=== PATIENT | female | born 1985 | race American Indian/Alaskan Native ===

== ENCOUNTER 2025-01-04 08:44 | Emergency (ER) | payer SELFPAY ==
[2025-01-04 08:45] VITALS: BMI 29.2
[2025-01-04 09:11] VITALS: BP 151/89; PULSE 66; RESP 16; TEMP 36.5; O2SAT 99
--- NOTE | 2025-01-04 09:17 | EDNOTE_ITS ---
Upper Extremity Injury RME/HPI General Chief Complaint: Hand/Wrist Problems Stated Complaint: CUT TO LEFT THUMB TODAY Time Seen by Provider: 01/04/25 08:49 Arrival date/time: 01/04/25 08:44 39-year-old female with no significant medical problems presents to the emergency department today complains of laceration to the left thumb dorsal aspect unknown last tetanus. Patient reports accidentally cut her self with box stacker Limitations: no limitations Related Data Previous Rx's ?Medication ?Instructions ?Recorded ciprofloxacin HCl 0.3 % eye drops See Rx Instructions ophthalmic 11/02/22 (eye) .COMPLEX #10 mL cephalexin 500 mg capsule 500 mg PO BID 5 days #10 cap s 01/04/25 ibuprofen 600 mg tablet 600 mg PO Q6H #30 tabs 01/04 Allergies Allergy/AdvReac Type Severity Reaction Status Date / Time No Known Allergies Allergy Verified 01/04/25 08:47 Review of Systems Review of Systems Systems Reviewed: All systems reviewed, normal except as documented Constitutional Constitutional: Reports system reviewed and no additional complaints, except as documented, Denies fever(s) and Denies headache(s) Eyes Eyes: Reports system reviewed and no additional complaints, except as documented and Denies blurry vision ENT Ears, Nose, Mouth, and Throat: Reports system reviewed and no additional complaints, except as documented, Denies headache(s), Denies nasal congestion and Denies nasal discharge Cardiovascular Cardiovascular: Reports system reviewed and no additional complaints, except as documented, Denies chest pain and Denies dyspnea Respiratory Respiratory: Reports system reviewed and no additional complaints, except as documented, Denies chest congestion, Denies cough and Denies dyspnea Gastrointestinal Gastrointestinal: Reports system reviewed and no additional complaints, except as documented and Denies abdominal pain Integumentary/Breasts Skin/Breast: Reports system reviewed and no additional complaints, except as documented, Denies rash and Reports wounds (Laceration left thumb) Neurologic Neurologic: Reports system reviewed and no additional complaints, except as documented, Reports as per HPI and Denies headache(s) Past Medical History Social History SMOKING STATUS: Never smoker ED Exam General Limitations: Present no limitations General appearance: Present alert and in no apparent distress Head Head exam: Present atraumatic Eye Eye exam: Present normal appearance, PERRL and EOMI ENT ENT exam: Present normal exam, normal oropharynx and mucous membranes moist Neck Neck exam: Present normal inspection, full ROM and trachea midline Chest Chest inspection: Present normal inspection and symmetric chest wall rise Respiratory Respiratory exam: Present normal lung sounds bilaterally Cardiovascular Cardiovascular exam: Present regular rate, normal rhythm and normal heart sounds Abdominal Exam Abdominal exam: Present soft and normal bowel sounds Extremities Exam Extremities exam: Present normal inspection and full ROM Back Exam Back exam: Present normal inspection and full ROM Neurological Exam Neurological exam: Present alert, oriented X3 and CN II-XII intact Psychiatric Psychiatric exam: Present normal affect and normal mood Skin Skin exam: Present warm, dry and other (Laceration left thumb) Course Quality Measures none Orders Category Date Time Status Set Up Suture Tray STAT Care 01/04/25 09:18 Completed Splint / Immobilizer STAT Care 01/04/25 09:37 Completed Wound Care NOW Care 01/04/25 09:18 Completed Lidocaine 1% 20 ml [Xylocaine 1% 20 ML] Med 01/04/25 09:18 Discontinued 20 ml INFL X1 ONE TET,DIP/PERT AC (Adult)-Tdap [Boostrix Adult (Tdap) Med 01/04/25 09:18 Discontinued Vacc] 0.5 ml IMI .ONCE ONE Vital Signs Vital signs: Vital Signs Temperature 97.7 F 01/04/25 09:11 Pulse Rate 66 01/04/25 09:11 Respiratory Rate 16 01/04/25 09:11 Blood Pressure 151/89 H 01/04/25 09:11 Pulse Oximetry (%) 99 01/04/25 09:11 Oxygen Delivery Method Room Air 01/04/25 09:11 O2 saturation on 99% room air within the limits Procedures -ED Laceration Laceration 1: Site: hand Side (If applicable): left Size (cm): 3 Description: linear Depth: simple, single layer Local Anesthetic: lidocaine 1% Amount of anesthesia used (mL): 4 Pre-repair: wound explored, irrigated extensively and deep structures intact Skin layer closed with: nylon Splint Fabrication: Clinician Made Type: Finger Protector Reason for Splint: Optimal Positioning and Pain Management Site condition: Laceration(s) Circulation Distal to Splint: Yes Movement Distal to Splint: Yes Senation Distal to Splint: Yes Tolerance: Tolerates Well Extremity Injury MDM Narrative MDM Narrative:: 39-year-old female with no significant medical problems presents to the emergency department today complains of laceration to the left thumb dorsal aspect unknown last tetanus. Patient reports accidentally cut her self with box stacker On exam patient has 3 cm laceration left thumb Wound again copiously laceration repaired with 4 sutures wound is well- approximated patient has full range of motion finger splint applied Tdap updated Patient discharged home in no distress to follow-up with primary care doctor in the next 24 to 48 hours and for any worsening symptoms to return to the ER immediately Patient data External records reviewed:: [facility] previous records Clinical information provided by:: patient Social determinants that could affect healthcare access:: none Patient has the following chronic illnesses:: None How is presenting disease/condition affected by chronic disease/condition?: no chronic disease Evaluation data The following diagnostics were reviewed and interpreted by me:: other (specify) Lab and/or radiology exams considered but not ordered:: Consider not ordered Interpretation Summary: N/A Medications / Prescriptions Medications or Prescriptions considered but not ordered:: Given Medication administrations:: Medication Administration History Discontinued Medications Diphtheria/Tetanus/Acell Pertussis (Diphth,Pertuss(Acell),Tet Vac 0.5 Ml Syr- Adult) 0.5 ml IMi .ONCE ONE Stop: 01/04/25 09:19 Last Admin: 01/04/25 09:46 Dose: 0.5 ml Documented By: ANDREY Lidocaine HCl (Lidocaine Hcl 1% 20 Ml Vial) 20 ml INFL X1 ONE Stop: 01/04/25 09:19 Last Admin: 01/04/25 09:45 Dose: 20 ml Documented By: ANDREY Comments: Administered by provider Given Consultations Consultation(s) initiated? (list below): No Diagnosis Upper Extremity Injury Differential Diagnosis: other (Laceration, abrasion, avulsion) Most likely diagnosis given after review of the tests above:: Laceration Admission Indicated Admission indicated?: not indicated Admission Request Was there a request for admission?: No Disposition Plan Disposition Plan: Discharge Discharge Attestation Discharge Attestation: The patient and all family members were given an opportunity to ask questions and understood the discharge instructions. Discharge instructions specifically effects, indications for sooner follow up or return to the emergency department, and the expected course of current diagnosis. Patient condition: Stable Discharge Plan Plan Patient Disposition: HOME (Self Care) Disposition Comment: Stable Prescriptions/Referrals Prescriptions/Med Rec: New cephalexin 500 mg capsule 500 mg PO BID 5 Days Qty: 10 0RF ibuprofen 600 mg tablet 600 mg PO Q6H Qty: 30 0RF No Action ciprofloxacin HCl 0.3 % drops See Rx Instructions .ROUTE .COMPLEX Qty: 10 0RF Rx Instructions: put 1-2 drps in affected eye(s) every 2hr up to 8 times/day x2days; then 4 times/day x5days Problem List Clinical Impression: Laceration of left thumb Patient/Caregiver Discharge Instructions Education Materials: ED Scar Tips to Minimize Additional Instructions: Please follow up with your primary care doctor in the next 24-48hrs for any worsening symptoms return here immediately Please have sutures removed in 10 days Print Language: Palestinian Stand Alone Forms: [facility]wini Award Info., Patient Portal Info Letter Vaccines Vaccines Given During Stay: TDaP PA/DAIRY BACTERIOLOGIST Supervising Physician PA/DAIRY BACTERIOLOGIST Supervising Physician: Dr Alva
[2025-01-04] MEDS: LIDOCAINE HCL 1% 20 ML VIAL INFL (09:45)
[2025-01-04] MEDS: DIPHTH,PERTUSS(ACELL),TET VAC 0.5 ML SYR- ADULT IMi (09:46)
== END 2025-01-04 09:51 | disposition home or self-care (01) ==
LOC: SERX 09:49
PROVIDERS: Emergency Provider Emergency Medicine
DX: S61.012A Laceration without foreign body of left thumb without damage to nail, initial encounter (principal); W27.8XXA Contact with other nonpowered hand tool, initial encounter; Z23 Encounter for immunization
CPT/HCPCS: 12002; 90471; 90715; 99283; J3490